=== PATIENT | male | born 1970 | race Caucasian/White ===

== ENCOUNTER 2016-11-30 16:01 | Emergency (ER) | payer BC ==
[~2016-11-30] VITALS: Ht 172.7 cm; Wt 158.8 kg
--- NOTE | 2016-11-30 16:12 | NUR ---
PT BIB SELF C/O EPIGASTRIC PAIN RADIATING LOWER INTO ABDOMEN AND STARTED N/V UPON ARRIVAL. NO BLOOD IN VOMIT. PT IS 4YRS S/P GASTRIC SLEEVE SX AND WAS TOLD TO COME TO ER BY SURGEON. RESP APPEARS EVEN UNLABORED HOWEVER PT REPORTS THAT HIS CHEST FEELS TIGHT D/T ABD PAIN. DENIES CP OR PALPITATIONS. 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 AMBULATORY WITH STEADY GAIT. IN ER BED 14 ON MONITOR.
[2016-11-30] MEDS ORDERED: ONDANSETRON HCL/PF 4 MG/2 ML VIAL ONE (16:24)
[2016-11-30] MEDS ORDERED: PANTOPRAZOLE 40 MG VIAL ONE (16:24)
[2016-11-30] MEDS ORDERED: MORPHINE SULFATE INJ 4 MG/ML DISP.SYRIN ONE (16:24)
[2016-11-30] MEDS ORDERED: MORPHINE SULFATE INJ 2 MG/ML DISP.SYRIN IV ONE (16:30)
[2016-11-30] MEDS ORDERED: ONDANSETRON HCL/PF - ER 4 MG/2 ML VIAL IV ONE (16:30)
[2016-11-30] MEDS ORDERED: PANTOPRAZOLE 40 MG VIAL IV ONE (16:30)
[2016-11-30 16:42] LABS: BASOPHILS # (AUTO) 0.2 /CMM (0.0-0.2); BASOPHILS % (AUTO) 1.5 % (0.0-2.0); EOSINOPHILS # (AUTO) 0.2 /CMM (0.0-0.7); EOSINOPHILS % (AUTO) 2.2 % (0.0-6.0); HEMATOCRIT 43 % (39-51); HEMOGLOBIN 14.4 g/dL (13.5-17.5); LYMPHOCYTES # (AUTO) 2.2 /CMM (0.8-4.8); LYMPHOCYTES % (AUTO) 20.7 % (20.0-44.0); MEAN CORPUSCULAR HEMOGLOBIN 28 PG (26.0-33.0); MEAN CORPUSCULAR HGB CONC 33 g/dl (31.0-36.0); MEAN CORPUSCULAR VOLUME 86 fL (80-96); MONOCYTES # (AUTO) 0.4 /CMM (0.1-1.30); MONOCYTES % (AUTO) 3.7 % (2.0-12.0); NEUTROPHILS # (AUTO) 7.7 /CMM (1.8-8.9); NEUTROPHILS % (AUTO) 71.9 % (43.0-81.0); PLATELET COUNT (AUTO) 245 /CMM (150-450); RDW COEFFICIENT OF VARIATION 13.9 (11.5-15.0); RED BLOOD CELL COUNT(AUTO) 5.05 MIL/uL (4.5-6.0); WHITE BLOOD COUNT (AUTO) 10.7 K/uL (4.3-11.0)
[2016-11-30 16:52] LABS: POTASSIUM 3.8 mmol/L (3.5-5.1)
[2016-11-30 16:56] LABS: INR 1.02 (0.87-1.13); PROTHROMBIN TIME 10.6 SECS (9.5-12.7)
--- NOTE | 2016-11-30 16:57 | NUR ---
URINE SAMPLE COLLECTED VIA CLEAN CATCH
[2016-11-30 16:58] LABS: ALBUMIN 3.9 g/dL (3.4-5.0); BILIRUBIN,DIRECT 0.2 mg/dL (0.0-0.2); BILIRUBIN,TOTAL 0.9 mg/dL (0.2-1.0); TOTAL PROTEIN, SERUM 7.5 g/dL (6.4-8.2)
[2016-11-30 17:28] LABS: APPEARANCE,URINE Clear (CLEAR); BILIRUBIN,URINE Negative (NEGATIVE); BLOOD, URINE Trace-intact Ery/uL (NEGATIVE); COLOR,URINE Yellow (YELLOW); KETONES,URINE Negative (NEGATIVE); LEUKOCYTE ESTERASE ,URINE Negative (NEGATIVE); NITRITE, URINE Negative (NEGATIVE); PROTEIN,URINE Trace mg/dl (NEGATIVE); UGLUCOSE Negative (NEGATIVE); UROBILINOGEN,URINE 0.2 EU/dL (0.2)
--- NOTE | 2016-11-30 17:54 | NUR ---
US TECH AT BEDSIDE
[2016-11-30 17:58] LABS: ADD URINE CULTURE NO; BACTERIA,URINE None seen /HPF (None Seen); MUCUS,URINE Many /LPF (None Seen); SQUAMOUS EPITHELIAL CELL,UR Few /HPF (None Seen); WBC,URINE 0-2 /HPF (0-3)
[2016-11-30] MEDS ORDERED: IV SET PRIMARY 1 EA INFUS.SET MC ONE (18:21)
[2016-11-30] MEDS ORDERED: IV NS 0.9% 500 ML IV ONE (18:21)
[2016-11-30] MEDS ORDERED: IV NS 0.9% 500 ML BAG IV ONE (18:30)
--- NOTE | 2016-11-30 18:35 | NUR ---
PT RESTING QUIETLY, NAD NOTED. PT DOES NOT APPEAR OVERTLY DEHYDRATED BUT STATES HE FEELS DEHYDRATED AND REQUESTS IV FLUIDS. MD NOTIFIED. IVF ADMINISTERED PER ORDER.
--- NOTE | 2016-11-30 19:35 | NUR ---
Patient discharged to home in stable condition. Written and verbal after care instructions given. Patient verbalizes understanding of instruction. IV removed. Catheter intact and site benign. Pressure and 4x4 applied to site. No bleeding noted. AMBULATORY WITH STEADY GAIT.
[2016-11-30 19:36] VITALS: BP 144/80
== END 2016-11-30 19:37 | disposition home or self-care (01) ==
LOC: ER 16:03
DX: R10.10 Upper abdominal pain, unspecified (principal); I10 Essential (primary) hypertension; I48.91 Unspecified atrial fibrillation; E66.9 Obesity, unspecified
CPT/HCPCS: 36415; 71010-TC; 76700-TC; 80048-TC; 80076-TC; 81000-TC; 83690-TC; 85025-TC; 85730-TC; A4606; C9113; J2270; J2405; J7040; Z7610

== ENCOUNTER 2016-12-01 14:29 | Emergency (ER) | payer BC ==
[~2016-12-01] VITALS: Ht 172.7 cm; Wt 158.8 kg
[2016-12-01 14:38] VITALS: BP 111/69
[2016-12-01] MEDS ORDERED: LIDOCAINE VISCOUS 2% UD 15 ML UDC ONE (15:41)
[2016-12-01] MEDS ORDERED: MAG HYDROX/AL HYDROX/SIMETH 30 ML UDC ONE (15:41)
[2016-12-01] MEDS ORDERED: DICYCLOMINE HCL 10 MG/5 ML UDC ONE ×2 (15:41→15:46)
[2016-12-01] MEDS: DICYCLOMINE HCL 10 MG CAPSULE PO ONE (15:49)
[2016-12-01] MEDS: LIDOCAINE VISCOUS 2% UD 15 ML UDC MM ONE (15:49)
[2016-12-01] MEDS: MAGNESIUM HYDROXIDE 30 ML UDC PO ONE (15:50)
== END 2016-12-01 15:51 | disposition home or self-care (01) ==
LOC: ER 14:30
DX: R10.13 Epigastric pain (principal); E66.9 Obesity, unspecified; I48.91 Unspecified atrial fibrillation; I10 Essential (primary) hypertension
CPT/HCPCS: A4606; Z7610